=== PATIENT | female | born 2000 | race Caucasian/White ===

== ENCOUNTER 2024-01-28 08:34 | Inpatient (IN) | payer OTHER ==
[2024-01-28 09:09] VITALS: BMI 20.7
[2024-01-28] MEDS ORDERED: chlordiazePOXIDE HCL 25 MG CAPSULE PO PRN (09:18)
[2024-01-28] MEDS ORDERED: hydrOXYzine PAMOATE 25 MG CAPSULE (FP) PO PRN (09:21)
[2024-01-28] MEDS ORDERED: METHOCARBAMOL 500 MG TABLET PO PRN (09:21)
[2024-01-28] MEDS ORDERED: MAGNESIUM HYDROX 2400MG/30ML ORAL SUSPENSION 30 ML CUP PO PRN (09:21)
[2024-01-28] MEDS ORDERED: ONDANSETRON *ODT* 4 MG TABLET SL PRN (09:21)
[2024-01-28] MEDS ORDERED: LOPERAMIDE HCL 2 MG CAPSULE PO PRN (09:21)
[2024-01-28] MEDS ORDERED: BENZONATATE 200 MG CAPSULE PO PRN (09:21)
[2024-01-28] MEDS ORDERED: NALOXONE (NYS OPIOID OVERDOSE PROGRAM) 4 MG/0.1 ML SPRAY NS PRN (09:21)
[2024-01-28] MEDS ORDERED: BISMUTH SUBSALICYLATE 262 MG/15 ML BTL PO PRN (09:21)
[2024-01-28] MEDS ORDERED: DICYCLOMINE HCL 10 MG CAPSULE PO PRN (09:21)
[2024-01-28] MEDS ORDERED: BENZOCAINE/MENTHOL (CHLORASEPTIC ) LOZENGE MM PRN (09:21)
[2024-01-28] MEDS ORDERED: guaiFENesin 600 MG TABLET.ER (FP) PO PRN (09:21)
[2024-01-28] MEDS ORDERED: ACETAMINOPHEN 325 MG TABLET (FP) PO PRN (09:21)
[2024-01-28] MEDS ORDERED: IBUPROFEN 400 MG TABLET (FP) PO PRN (09:21)
[2024-01-28] MEDS ORDERED: MAG HYDROX/AL HYDROX/SIMETH 30 ML UNIT-DOSE CUP PO PRN (09:21)
[2024-01-28] MEDS ORDERED: POLYETHYLENE GLYCOL (HEALTHYLAX) 3350 17 GM PACKET PO PRN (09:21)
[2024-01-28] MEDS ORDERED: IBUPROFEN 600 MG TABLET (FP) PO PRN (09:21)
[2024-01-28] MEDS ORDERED: chlordiazePOXIDE HCL 25 MG CAPSULE ONE (10:26)
[2024-01-28] MEDS ORDERED: PRENATAL VITAMINS W/ FOLIC ACID TABLET (FP) PO ONE (10:27)
[2024-01-28] MEDS: chlordiazePOXIDE HCL 25 MG CAPSULE PO SCH (10:28)
[2024-01-28] MEDS: PRENATAL VITAMINS W/ FOLIC ACID TABLET (FP) PO SCH (10:31)
[2024-01-28] MEDS: MELATONIN 5 MG TABLETS PO SCH (21:06)
[2024-01-28] MEDS: FLUoxetine HCL 20 MG CAPSULE PO SCH (21:06)
[2024-01-28] MEDS: ETHOSUXIMIDE 250 MG PO SCH (21:10)
[2024-01-28] MEDS: BRIVARACETAM 25 MG PO SCH (21:29)
[2024-01-28] MEDS: THIAMINE 100 MG TABLET PO SCH (21:29)
[2024-01-28] MEDS: CLOBAZAM 10 MG PO SCH (21:29)
[2024-01-28] MEDS: BRIVARACETAM 100 MG PEG SCH (21:29)
[2024-01-28] MEDS: CLOBAZAM 20 MG PO SCH (21:29)
[2024-01-29 12:22] LABS: HEMATOCRIT 38.9 % (32.4-45.2); HEMOGLOBIN 13.4 GM/dL (10.7-15.3); MCH 37.1 pg (25.7-33.7); MCHC 34.6 g/dl (32.0-36.0); MEAN CELL VOLUME 107.3 fl (80-96); MEAN PLT VOLUME 7.4 fl (7.5-11.1); PLATELET COUNT 334 10^3/uL (134-434); RBC 3.63 M/mm3 (3.60-5.2); RDW 12.3 % (11.6-15.6); WHITE BLOOD COUNT 4.7 K/mm3 (4.0-10.0)
[2024-01-29 12:47] LABS: POTASSIUM 4.5 mmol/L (3.5-5.1)
[2024-01-29 12:52] LABS: ALBUMIN 4.3 g/dl (3.4-5.0); CALCIUM 10.1 mg/dL (8.5-10.1)
[2024-01-29 12:53] LABS: BLOOD UREA NITROGEN 8.6 mg/dL (7-18)
[2024-01-29 12:56] LABS: CREATININE 0.9 mg/dL (0.55-1.3)
[2024-01-29 12:57] LABS: BILIRUBIN,TOTAL 0.2 mg/dL (0.2-1)
[2024-01-29 12:58] LABS: TOT PROT 7.3 g/dl (6.4-8.2)
[2024-01-29 13:17] VITALS: BP 101/67; PULSE 84; RESP 18; TEMP 97.6
[2024-01-30] MEDS ORDERED: chlordiazePOXIDE HCL 25 MG CAPSULE PO SCH (05:00)
[2024-01-31] MEDS ORDERED: chlordiazePOXIDE HCL 10 MG CAPSULE PO PRN
[2024-01-31] MEDS ORDERED: chlordiazePOXIDE HCL 10 MG CAPSULE PO SCH (05:00)
[2024-02-01] MEDS ORDERED: chlordiazePOXIDE HCL 10 MG CAPSULE PO SCH (05:00)
[2024-02-02] MEDS ORDERED: chlordiazePOXIDE HCL 10 MG CAPSULE PO ONE (05:00)
== END 2024-01-29 15:12 | disposition left against medical advice (07) | DRG 894 ==
LOC: YASAS 08:34 → Y3N 09:58
PROVIDERS: ADMIT Allergy & Immunology; ATTEND Surgery
PROC: HZ2ZZZZ Detoxification Services for Substance Abuse Treatment (ICD-10-PCS; principal; 2024-01-28)
DX: F10.230 Alcohol dependence with withdrawal, uncomplicated (principal); F19.24 Other psychoactive substance dependence with psychoactive substance-induced mood disorder; F41.9 Anxiety disorder, unspecified; F64.0 Transsexualism; G40.909 Epilepsy, unspecified, not intractable, without status epilepticus
CPT/HCPCS: 36415; 80053; 80305; 80307; 81025; 85027; 86780; 93005; 93010